=== PATIENT | female | born 2000 | race Caucasian/White ===

== ENCOUNTER 2020-12-01 20:39 | Emergency (ER) | payer OTHER ==
[~2020-12-01] VITALS: Ht 170.2 cm; Wt 98.9 kg
[2020-12-01] MEDS ORDERED: IBU600 MG PO (23:05)
[2020-12-01] MEDS ORDERED: CEFPODOXIME PR200 MG PO (23:05)
[2020-12-01] MEDS ORDERED: CEPHALEXIN500 MG PO (23:15)
== END 2020-12-01 23:50 | disposition home or self-care (01) ==
LOC: ED 20:39
DX: N12 Tubulo-interstitial nephritis, not specified as acute or chronic (principal)
CPT/HCPCS: 80053; 81001; 83605; 83690; 84702; 85025; 96374; 96375; 99284-25; J0696; J1885; J2405; J7121